=== PATIENT | female | born 1980 | race Caucasian/White ===

== ENCOUNTER 2019-05-24 21:13 | Emergency (ER) | payer OTHER ==
[~2019-05-24] VITALS: Ht 160 cm; Wt 74.8 kg
[2019-05-24 21:14] VITALS: Ht 160 cm; Wt 74.8 kg
[2019-05-24 22:28] VITALS: BP 184/74
== END 2019-05-24 22:28 | disposition home or self-care (01) ==
LOC: ED 21:13
DX: R05 Cough (principal); R09.89 Other specified symptoms and signs involving the circulatory and respiratory systems; R06.02 Shortness of breath
CPT/HCPCS: Q0092